=== PATIENT | male | born 1950 | race Two or more races ===

== ENCOUNTER 2021-09-06 23:44 | Emergency (ER) | payer MEDICARE, OTHER ==
[~2021-09-06] VITALS: Ht 182.9 cm; Wt 200.0 kg
[2021-09-07 00:04] VITALS: BP 143/74
[2021-09-07] MEDS ORDERED: traMADol 50MG tablet PO ONE ×2 (01:20→01:30)
[2021-09-07 01:51] LABS: BASOPHILS # (AUTO) 0.1 X10'3 (0-0.2); BASOPHILS % (AUTO) 0.9 % (0-1); HEMOGLOBIN 11.1 g/dl (14.0-17.9); NEUTROPHILS # (AUTO) 10.2 X10'3 (1.8-7.7)
[2021-09-07 01:53] LABS: EOSINOPHILS # (AUTO) 0.5 X10'3 (0-0.9); EOSINOPHILS % (AUTO) 3.1 % (0-6); LYMPHOCYTES # (AUTO) 3.1 X10'3 (1.1-4.8); LYMPHOCYTES % (AUTO) 20.5 % (21-51); MEAN CORPUSCULAR HEMOGLOBIN 33.3 PG (27.0-31.0); MEAN CORPUSCULAR HGB CONC 34.7 g/dL (33.0-36.5); MEAN CORPUSCULAR VOLUME 96.1 FL (78-98); MONOCYTES # (AUTO) 1.2 X10'3 (0-0.9); MONOCYTES % (AUTO) 8.2 % (2-12); NEUTROPHILS % (AUTO) 67.3 % (42-75); PLATELET COUNT 679 X10'3 (140-440); RED BLOOD COUNT 3.33 X10'6 (4.70-6.10); RED CELL DISTRIBUTION WIDTH 14.5 % (11.5-14.5); WHITE BLOOD COUNT 15.1 X10'3 (4.5-11.0)
[2021-09-07 02:30] LABS: ANION GAP 10 (8-16); BILIRUBIN,TOTAL 0.3 MG/DL (0.1-1.0); BLOOD UREA NITROGEN 32 MG/DL (7-18); BUN/CREATININE RATIO 14.2 (5.4-32.0); CALCIUM 9.3 MG/DL (8.5-10.1); CHLORIDE 103 MMOL/L (99-107); CREATININE 2.25 MG/DL (0.60-1.10); GLUCOSE 119 MG/DL (70-104); SODIUM 138 MMOL/L (135-145); TOTAL CARBON DIOXIDE 25.2 MMOL/L (24-32); TROPONIN I < 0.04 NG/ML (0.0-0.05); eGFR 29 ML/MIN
[2021-09-07 02:31] LABS: ALANINE AMINOTRANSFERASE 68 U/L (12-78); ALBUMIN 3.1 G/DL (3.4-5.0); ALBUMIN/GLOBULIN RATIO 0.6 (1.1-1.5); ALKALINE PHOSPHATASE 80 IU/L (46-116); ASPARTATE AMINO TRANSFERASE 21 U/L (10-37)
[2021-09-07 02:34] LABS: PLATELET ESTIMATE INCREASED; TOTAL CELLS COUNTED 100
[2021-09-07 02:38] LABS: POTASSIUM 2.9 MMOL/L (3.5-5.1)
[2021-09-07] MEDS ORDERED: potassium Cl 20 mEq SR tablet PO STA (03:49)
--- NOTE | 2021-09-07 04:26 | NUR ---
PT READY FOR DISCHARGE, WANTS SOMEONE TO LISTEN TO HIS HICCUPS, MD NOTIFIED.
== END 2021-09-07 04:47 | disposition home or self-care (01) ==
LOC: ER 23:46
DX: R06.6 Hiccough (principal); E87.6 Hypokalemia; N17.9 Acute kidney failure, unspecified; R10.9 Unspecified abdominal pain; K44.9 Diaphragmatic hernia without obstruction or gangrene; I10 Essential (primary) hypertension
CPT/HCPCS: 36415; 74176; 80053; 84484; 85007; 85025; 93005; 99285